=== PATIENT | female | born 1935 | race Caucasian/White ===

== ENCOUNTER 2016-06-19 10:09 | Inpatient (IN) | payer MEDICARE ==
[~2016-06-19] VITALS: Ht 149.9 cm; Wt 55.8 kg
[2016-06-19 12:28] LABS: RED BLOOD COUNT 2.68 M/UL (4.00-5.10); WHITE BLOOD COUNT 13.5 K/UL (4.5-11.0)
[2016-06-19 12:33] LABS: HEMOGLOBIN 4.4 gm/dl (12.3-15.3)
[2016-06-20] MEDS ORDERED: KETOPROFEN75 MG PO (00:03)
[2016-06-20] MEDS ORDERED: ALLERGY RELIEF4 MG PO (00:04)
[2016-06-20] MEDS ORDERED: NORVASC 5 MG TAB5 MG PO (00:05)
[2016-06-20 02:54] LABS: HEMOGLOBIN 7.8 gm/dl (12.3-15.3); RED BLOOD COUNT 3.6 M/UL (4.00-5.10); WHITE BLOOD COUNT 7.1 K/UL (4.5-11.0)
[2016-06-21 05:29] LABS: BUN/CREATININE RATIO 18 (0-10)
[2016-06-21 05:35] LABS: HEMOGLOBIN 8.2 gm/dl (12.3-15.3); RED BLOOD COUNT 3.81 M/UL (4.00-5.10); WHITE BLOOD COUNT 5.7 K/UL (4.5-11.0)
[2016-06-22 06:30] LABS: HEMOGLOBIN 8.2 gm/dl (12.3-15.3); RED BLOOD COUNT 3.87 M/UL (4.00-5.10)
[2016-06-22 07:02] LABS: BUN/CREATININE RATIO 14 (0-10)
[2016-06-22] MEDS ORDERED: FERROUSUL325 MG PO (11:30)
[2016-06-22] MEDS ORDERED: PROTONIX40 MG PO (11:31)
[2016-06-22] MEDS ORDERED: DOCUSATE SODIU100 MG PO (11:32)
== END 2016-06-22 14:35 | disposition home or self-care (01) | DRG 378 ==
LOC: ER1 10:09 → ZEROF 16:15 → MED SURG 4 17:15
PROVIDERS: Emergency Medicine; Internal Medicine Gastroenterology; Physician Assistant; ADMIT Internal Medicine
PROC: 30233N1 Transfusion of Nonautologous Red Blood Cells into Peripheral Vein, Percutaneous Approach (ICD-10-PCS; 2016-06-19)
PROC: 30233N1 Transfusion of Nonautologous Red Blood Cells into Peripheral Vein, Percutaneous Approach (ICD-10-PCS; 2016-06-19)
PROC: 0DJ08ZZ Inspection of Upper Intestinal Tract, Via Natural or Artificial Opening Endoscopic (ICD-10-PCS; principal; 2016-06-21 12:15)
DX: K25.4 Chronic or unspecified gastric ulcer with hemorrhage (principal); D62 Acute posthemorrhagic anemia; N30.00 Acute cystitis without hematuria; K21.0 Gastro-esophageal reflux disease with esophagitis; K44.9 Diaphragmatic hernia without obstruction or gangrene; I10 Essential (primary) hypertension; D50.9 Iron deficiency anemia, unspecified; D47.3 Essential (hemorrhagic) thrombocythemia; R07.89 Other chest pain; M19.012 Primary osteoarthritis, left shoulder; M19.011 Primary osteoarthritis, right shoulder; Z85.44 Personal history of malignant neoplasm of other female genital organs; Z91.19 Patient's noncompliance with other medical treatment and regimen; Z79.899 Other long term (current) drug therapy; Z96.651 Presence of right artificial knee joint; Z90.710 Acquired absence of both cervix and uterus; Z90.49 Acquired absence of other specified parts of digestive tract; Z98.42 Cataract extraction status, left eye; Z98.41 Cataract extraction status, right eye; Z98.890 Other specified postprocedural states; Z88.0 Allergy status to penicillin; Z88.2 Allergy status to sulfonamides; Z88.8 Allergy status to other drugs, medicaments and biological substances; Z82.3 Family history of stroke; Z82.49 Family history of ischemic heart disease and other diseases of the circulatory system
CPT/HCPCS: 36415; 36430; 70450; 71010; 80048; 80053; 81001; 82272; 82550; 82553; 82607; 82728; 82746; 83010; 83540; 83550; 83735; 83874; 84100; 84484; 85025; 85027; 85045; 86850; 86900; 86901; 86920; 87040; 87077; 87086; 87186; 93005; 96374; 96375; 99285; J1956; J2250; J2405; J7040; J7050; P9016